=== PATIENT | female | born 1950 | race Two or more races ===

== ENCOUNTER 2021-12-01 07:16 | Observation (INO) ==
--- NOTE | 2021-11-02 10:23 | PAT Medication Instructions ---
Medication Instructions Date of Service November 02, 2021 Home Medications acetazolamide 250 mg tablet 250 mg PO UD aspirin 81 mg capsule 162 mg PO QAM cevimeline 30 mg capsule 1 cap PO TID cyanocobalamin (vitamin B-12) 1,000 mcg capsule 1,000 mcg PO QAM ferrous sulfate 325 mg (65 mg iron) tablet (iron) 325 mg PO Q2D gabapentin 100 mg capsule 300 mg PO HS hydrochlorothiazide 25 mg tablet 25 mg PO QAM inulin 2 gram chewable tablet (Fiber Gummies) 2 g PO HS lisinopril 2.5 mg tablet 2.5 mg PO QAM metformin 500 mg tablet 500 mg PO QPM multivitamin 1 tab PO QAM oxybutynin chloride 5 mg tablet 5 mg PO TID pantoprazole 20 mg tablet,delayed release 20 mg PO BID pilocarpine HCl 5 mg tablet 5 mg PO QID ropinirole 0.25 mg tablet 0.25 mg PO HS semaglutide (Ozempic) 0.25 mg SUBCUT WK Continue as directed semaglutide (Ozempic) 0.25 mg SUBCUT WK acetazolamide 250 mg tablet 250 mg PO UD DO NOT take the morning of surgery cyanocobalamin (vitamin B-12) 1,000 mcg capsule 1,000 mcg PO QAM ferrous sulfate 325 mg (65 mg iron) tablet (iron) 325 mg PO Q2D hydrochlorothiazide 25 mg tablet 25 mg PO QAM lisinopril 2.5 mg tablet 2.5 mg PO QAM multivitamin 1 tab PO QAM oxybutynin chloride 5 mg tablet 5 mg PO TID pilocarpine HCl 5 mg tablet 5 mg PO QID cevimeline 30 mg capsule 1 cap PO TID Take morning of surgery With a small sip of water, OTHERWISE NOTHING TO EAT OR DRINK AFTER MIDNIGHT: aspirin 81 mg capsule 162 mg PO QAM (unless surgeon directed otherwise) pantoprazole 20 mg tablet,delayed release 20 mg PO BID Take evening before surgery cevimeline 30 mg capsule 1 cap PO TID gabapentin 100 mg capsule 300 mg PO HS inulin 2 gram chewable tablet (Fiber Gummies) 2 g PO HS metformin 500 mg tablet 500 mg PO QPM oxybutynin chloride 5 mg tablet 5 mg PO TID pantoprazole 20 mg tablet,delayed release 20 mg PO BID pilocarpine HCl 5 mg tablet 5 mg PO QID ropinirole 0.25 mg tablet 0.25 mg PO HS Other Notes If you have any questions please call us at [phone] or [phone] or [phone] or [phone]
--- NOTE | 2021-11-05 09:16 | Anesthesiology Consultation ---
Date of Service November 05, 2021 Assessment & Plan (1) Encounter for pre-operative examination: - check BSG am DOS. - Pt's daughter to accompany her DOS due to chronic memory changes per pt and daughter, OR notified. - positive antibodies: Per Erick with blood bank, nothing additional needed from PAT or patient at this time. - PCP pre-op office visit 11/02/21 [facility]: "...Pt has revised cardiac index score of No Risk Factors- 0.4% (95% CI: 0.1-0.8) for the surgery scheduled...low risk for the listed procedure..." - neurology office visit 08/11/21 [facility]: "...congenital nystagmus and periodic atax ia with her Diamox dose being limited by the presence of renal calculi...episodes of brief duration ataxia and speech arrest lasting up to a half an hour...has had some falls...Continue Diamox...follow with nephrology...offered some balance therapy but she is not interested..." - COVID screening: Per assessment on 11/05/2021: Travel screen negative, no known COVID-19 positive contacts or current COVID-19 related symptoms in past 2 weeks. Patient vaccinated. Surgeon arranging preop COVID testing, scheduled 11/26/2021. Awaiting results. Chart Review Chart Review: Acceptable Risk for Surgery and Patient seen in Pre Admission Testing Teaching & Discussion Pre-Anesthesia Teaching/Discussion Notes: Instructed NPO after midnight before surgery, except medications with 15 cc of water. Medication instructions provided according to the PAT guidelines. History Surgery Operation Date: 12/01/21 07:15 Proposed Procedures p Left Total Knee Arthroplasty - Zaid Roberto MD Height/Weight Height: 5 ft 5 in Weight: 102.4 kg Allergies Allergy/AdvReac Type Severity Reaction Status Date / Time No Known Allergies Allergy Verified 11/02/21 08:00 Medications Home Medications Medication Instructions Recorded Confirmed Last Taken acetazolamide 250 mg tablet 250 mg PO UD 11/02/21 11/02/21 Unknown aspirin 81 mg capsule 162 mg PO QAM 11/02/21 11/02/21 Unknown cevimeline 30 mg capsule 1 cap PO TID 11/02/21 11/02/21 Unknown cyanocobalamin (vitamin B-12) 1,000 mcg PO QAM 11/02/21 11/02/21 Unknown 1,000 mcg capsule ferrous sulfate 325 mg (65 mg 325 mg PO Q2D 11/02/21 11/02/21 Unknown iron) tablet (iron) gabapentin 100 mg capsule 300 mg PO HS 11/02/21 11/02/21 Unknown hydrochlorothiazide 25 mg tablet 25 mg PO QAM 11/02/21 11/02/21 Unknown inulin 2 gram chewable tablet 2 g PO HS 11/02/21 11/02/21 Unknown (Fiber Gummies) lisinopril 2.5 mg tablet 2.5 mg PO QAM 11/02/21 11/02/21 Unknown metformin 500 mg tablet 500 mg PO QPM 11/02/21 11/02/21 Unknown multivitamin 1 tab PO QAM 11/02/21 11/02/21 Unknown oxybutynin chloride 5 mg tablet 5 mg PO TID 11/02/21 11/02/21 Unknown pantoprazole 20 mg tablet,delayed 20 mg PO BID 11/02/21 11/02/21 Unknown release pilocarpine HCl 5 mg tablet 5 mg PO QID 11/02/21 11/02/21 Unknown ropinirole 0.25 mg tablet 0.25 mg PO HS 11/02/21 11/02/21 Unknown semaglutide (Ozempic) 0.25 mg SUBCUT WK 11/02/21 11/02/21 Unknown Past Medical History Medical History (Updated 11/08/21 @ 08:23 by Shazia Harding PA-C) Anemia H&H pre-op 10/2021 Arthritis 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 neuro Dr. Chris Magana CKD (chronic kidney disease) stage 3, GFR 30-59 ml/min follows with [facility] nephrology Congenital nystagmus follows with [facility] neuro Cutaneous lupus erythematosus Diabetes mellitus, type 2 Heartburn History of kidney stones Hypertension controlled, stable per pt Protein in urine "REASON FOR DITROPAN PER PATIENT" Restless leg syndrome Sjogren's syndrome Sleep apnea CPAP- compliant Patient denies h/o stroke, seizures, heart attack, heart failure, blood clots or blood transfusions. Exercise / Class Metabolic Activity III < 4 Walking/Shop/Light housework (ambulates with cane/walker, denies CP or SOB) Past Family History Family History Mother Family history of diabetes mellitus Other No family history of adverse response to anesthesia Past Surgical History Surgical History History of arthroscopy LEFT KNEE History of cholecystectomy History of colonoscopy History of esophagogastroduodenoscopy (EGD) History of lithotripsy History of tooth extraction Past Anesthesia History No Hx of Anesthesia Complications and No Family Hx of Anesthesia Complications History of PONV No Hx of PONV and No Hx of Motion Sickness Social History Smoking Status: Never smoker Do You Dip or Chew Tobacco: No Hx Alcohol Use: No substance use type: does not use Review of Systems Patient denies chest pain, shortness of breath, dyspnea on exertion, fever, chills, cough, wheezing, or palpitations. Physical Exam Vital Signs Vitals BP 113/72 P 72 TEMP 98.5 SP02 97% on RA RESP 17 Physical Full cervical extension range of motion without pain TMD 3.5 finger breaths Mallampati Score 2 Dentition: intact, partial upper front two, several missing right upper side; d enies chipped or loose teeth or implants Lungs: normal respiratory effort. Clear throughout to auscultation, no adventitious breath sounds Cardiac: regular rate and rhythm, no murmurs noted Carotid arteries: negative bruit bilat Lab Results Anesthesia Preop Results Results Anesthesia Widget: WBC 4.82 K/uL (4.8-10.8) 11/05/21 Hgb 12.5 g/dL (12.0-16.0) 11/05/21 Hct 38.8 % (37-47) 11/05/21 Plt 171 K/uL (130-400) 11/05/21 Na 140 mmol/L (136-145) 11/05/21 K 3.5 mmol/L (3.5-5.1) 11/05/21 Cl 107 mmol/L (98-107) 11/05/21 CO2 26 mmol/L (21-32) 11/05/21 BUN 24 mg/dl (6-23) H 11/05/21 Creat 1.14 mg/dl (0.6-1.2) 11/05/21 Glucose Level 92 mg/dl (70-99(Fasting)) 11/05/21 PT 10.9 Seconds (9.0-12.0) 11/05/21 PTT 27.5 Seconds (21.0-31.0) 11/05/21 INR 1.0 (0.9-1.1) 11/05/21 HA1c 6.1 % (4.5-5.6) H 11/05/21 Urine Color Yellow 11/05/21 Urine Appearance Clear (Clear) 11/05/21 Urine pH 7.0 (4.5-7.5) 11/05/21 Urine Specific [place] 1.013 (1.000-1.030) 11/05/21 Urine Protein Negative (Negative) 11/05/21 Urine Glucose (UA) Negative (Negative) 11/05/21 Urine Ketones Negative (Negative) 11/05/21 Urine Blood Negative (Negative) 11/05/21 Urine Nitrite Negative (Negative) 11/05/21 Urine Bilirubin Negative (Negative) 11/05/21 Urine Urobilinogen Negative (Negative) 11/05/21 Urine Leukocyte Esterase Trace (Negative) H 11/05/21 Urine WBC (Auto) 1-5 /hpf (0-5) 11/05/21 Urine RBC (Auto) 0-4 /hpf (0-4) 11/05/21 Urine Hyaline Casts (Auto) 0 /lpf (0-5) 11/05/21 Urine Epithelial Cells (Auto) >30 /lpf (0-5) H 11/05/21 Urine Bacteria (Auto) Negative (Negative) 11/05/21 Blood Type A Positive 11/05/21 Antibody Screen POSITIVE A 11/05/21 Testing Electrocardiogram Date: 11/05/21 NSR, rate 69 bpm Left axis deviation Chest X-Ray Date: 11/05/21 No pneumothorax. No pleural effusions. The heart is mildly enlarged. Prior cholecystectomy. There is mild diffuse interstitial thickening. This may be chronic. Otherwise, no focal lung consolidations to suggest pneumonia. No evidence for pulmonary edema. IMPRESSION: 1. Mild cardiomegaly. 2. Mild diffuse interstitial thickening. This is likely chronic. Stress Test Date: 02/20/18 Dobutamine Normal without resting LV wall motion abnormalities or inducible ischemia MPHR 95% EF 68%
--- NOTE | 2021-11-30 19:34 | History & Physical Report ---
Date of Service November 30, 2021 Assessment & Plan (1) Primary osteoarthritis of left knee: Plan: Patient with endstage osteoarthritis left knee. She has failed conservative measures and would like to proceed with knee replacement. Risks, benefits and alternatives to surgery including but not limited to infection, DVT, pain, stiffness, need for revision surgery, damage to blood vessels, damage to nerves, PE, , were discussed with the patient and they wish to proceed. Plan on left total knee arthroplasty at [facility] on 12/01/[address] Roberto. Will plan on aspirin 81mg twice daily for 1 mo post op for DVT prophylaxis. Will plan on outpatient PT. All questions answered. She will follow up post op. History of Present Illness Chief Complaint: Left knee pain Primary Care Provider: NO PCP 70yo female with PMHx significant for SANDRINE, DM2, HTN, CKD who presents with ongoing left knee pain. She has failed conservative measures including viscoelastic and cortisone injecitons, as well as anti-inflammatories. Pain is interfering with her daily activities. She would like to proceed with surgical intervention. Patient denies headaches, sweats, fevers, chills, double vision, blurred vision, cough, sore throat, dysphagia, chest pain, sob, wheezing, n/v/d/c, numbness, tingling, fatigue, urinary symptoms, mood disorders. ROS positive for left knee pain and stiffness. Allergies Allergy/AdvReac Type Severity Reaction Status Date / Time No Known Allergies Allergy Verified 11/02/21 08:00 Home Medications Medication Instructions Recorded Confirmed Type acetazolamide 250 mg tablet 250 mg PO UD 11/02/21 11/02/21 History aspirin 81 mg capsule 162 mg PO QAM 11/02/21 11/02/21 History cevimeline 30 mg capsule 1 cap PO TID 11/02/21 11/02/21 History cyanocobalamin (vitamin B-12) 1,000 mcg PO QAM 11/02/21 11/02/21 History 1,000 mcg capsule ferrous sulfate 325 mg (65 mg 325 mg PO Q2D 11/02/21 11/02/21 History iron) tablet (iron) gabapentin 100 mg capsule 300 mg PO HS 11/02/21 11/02/21 History hydrochlorothiazide 25 mg tablet 25 mg PO QAM 11/02/21 11/02/21 History inulin 2 gram chewable tablet 2 g PO HS 11/02/21 11/02/21 History (Fiber Gummies) lisinopril 2.5 mg tablet 2.5 mg PO QAM 11/02/21 11/02/21 History metformin 500 mg tablet 500 mg PO QPM 11/02/21 11/02/21 History multivitamin 1 tab PO QAM 11/02/21 11/02/21 History oxybutynin chloride 5 mg tablet 5 mg PO TID 11/02/21 11/02/21 History pantoprazole 20 mg tablet,delayed 20 mg PO BID 11/02/21 11/02/21 History release pilocarpine HCl 5 mg tablet 5 mg PO QID 11/02/21 11/02/21 History ropinirole 0.25 mg tablet 0.25 mg PO HS 11/02/21 11/02/21 History semaglutide (Ozempic) 0.25 mg SUBCUT WK 11/02/21 11/02/21 History Past Med/Surg History Medical History (Updated 11/30/21 @ 19:33 by Ritesh Heller PA-C) Anemia H&H pre-op 10/2021 Arthritis 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 Chris Magana CKD (chronic kidney disease) stage 3, GFR 30-59 ml/min follows with [facility] nephrology Congenital nystagmus follows with [facility] neuro Cutaneous lupus erythematosus Diabetes mellitus, type 2 Heartburn History of kidney stones Hypertension controlled, stable per pt Protein in urine "REASON FOR DITROPAN PER PATIENT" Restless leg syndrome Sjogren's syndrome Sleep apnea CPAP- compliant Surgical History History of arthroscopy LEFT KNEE History of cholecystectomy History of colonoscopy History of esophagogastroduodenoscopy (EGD) History of lithotripsy History of tooth extraction Family History Mother Family history of diabetes mellitus Other No family history of adverse response to anesthesia Social History Smoking Status: Never smoker Second Hand Exposure: No; Hx Alcohol Use: No Preferred Language: Danish Warehouse Operator Required: No Beliefs That Will Affect Care: None Current Living Situation: Spouse Feels Safe at Home: Yes Assistive Devices: Cane, CPAP, Glasses and Walker Review of Systems All systems reviewed & are unremarkable except as noted in HPI & below Physical Exam Constitutional: well developed and well nourished; no acute distress Eyes: PERRL, conjunctivae normal, anicteric sclerae ENMT: external ear and nose normal, oropharynx normal Neck: trachea midline, no thyromegaly Respiratory: normal respiratory effort, lungs clear to auscultation Cardiovascular: RRR, no murmur, no edema Musculoskeletal: Left knee: Varus alignment. Mild effusion. Tenderness medial joint line. ROM 15-100 degrees. Stable to valgus and varus stress. Skin: no rashes, warm and dry Neurologic: patellar DTR's 2+ bilat, sensation intact Psychiatric: A+Ox3, euthymic affect Results & Data ([facility]) Diagnostic Findings Left knee: Severe endstage osteoarthritis with varus alignment, bone on bone medial compartment.
[~2021-12-01 07:16] MED LIST: ACETAMINOPHEN 500 MG TAB PO SCH; BUPIVACAINE 0.25% 30 ML VIAL ONE; BUPIVACAINE 0.5 % 5 MG/1 ML PF 10ML VIAL ONE; CeleBREX 200 MG CAP PO SCH; DEXAMETHASONE SOD INJ 4 MG/ML VIAL ONE; EPINEPHrine INJ 1 MG/ML AMP ONE; FAMOTIDINE 20 MG TAB PO SCH; GABAPENTIN 300 MG CAP PO SCH; LR 500ML BOLUS, THEN 15ML/HR IV SCH; METOCLOPRAMIDE HCL 10 MG TABLET PO SCH; TRANEXAMIC ACID 1,000 MG **IV Intra-op IV SCH; TRANEXAMIC ACID 1,000 MG **IV Pre-op IV SCH; ceFAZolin 2000MG 2,000 MG/15 ML SYR IV SCH
[2021-12-01] MEDS ORDERED: LIDOCAINE 2% 2 ML VIAL/AMP(20MG/ML) INFIL ONE (08:18)
[2021-12-01] MEDS ORDERED: ePHEDrine sulfate 50 MG/ML SYR ONE (08:18)
[2021-12-01] MEDS ORDERED: PROPOFOL IV EMULSION 10 MG/ML 20 ML VIAL IV ONE ×3 (08:18→12:24)
[2021-12-01] MEDS ORDERED: MIDAZOLAM HCL 1 MG/ML 2ML VIAL ONE (08:19)
[2021-12-01] MEDS ORDERED: fentaNYL citrate 100 MCG/2 ML VIAL ONE (08:19)
--- NOTE | 2021-12-01 09:50 | History & Physical Bridge Note ---
Date of Service December 01, 2021 History & Physical Bridge Note I have examined the patient, reviewed the History & Physical and in the interval since the performance of the History & Physical I have noted the following changes of clinical significance: no changes noted
[2021-12-01] MEDS ORDERED: ONDANSETRON INJ 2 MG/ML 2 ML VIAL IV PRN ×2 (09:58→14:13)
[2021-12-01] MEDS ORDERED: ATROPINE SULFATE 0.1 MG/ML 10ML SYR IV PRN (09:58)
[2021-12-01] MEDS ORDERED: fentaNYL citrate 100 MCG/2 ML VIAL IV PRN (09:58)
[2021-12-01] MEDS ORDERED: ePHEDrine sulfate 50 MG/ML AMP IV PRN (09:58)
[2021-12-01] MEDS ORDERED: ROPIVACAINE 0.5% HCL/PF 150 MG, BUPIVACAINE 0.75% MPF 20 ML, EPINEPHrine 0.15 MG, dexAM... INFIL SCH (11:00)
[2021-12-01] MEDS ORDERED: ePHEDrine sulfate 50 MG/ML AMP ONE (11:45)
--- NOTE | 2021-12-01 13:23 | Post Operative Brief Note ---
Immediate Post Op Note v1 Date of Surgery December 01, 2021 Pre & Post Diagnosis Operation Date: 12/01/21 09:35 Pre-Op Diagnosis: Left Knee Osteoarthritis Post-Op Diagnosis: Left Knee Osteoarthritis I identified the patient and participated in the time-out.: Yes Procedure Operation Date: 12/01/21 09:35 Actual Procedures p Left Total Knee Arthroplasty(Left), lateral release, superficial wound VAC application- Zaid Roberto MD Surgeon Zaid Roberto MD Typing Bookkeeper Herman SMITH Estimated Blood Loss 10 Findings Consistent with Post-Op Diagnosis Specimens Bone cuts Drains Hemovac Drain (10Fr Round) Anesthesia Type MAC Spinal Regional Complications none Disposition Accompanied Patient To Recovery: No Disposition: Recovery Room Overlapping Procedure I was immediately available: during the entire case.
--- NOTE | 2021-12-01 13:33 | Operative Report ---
Post Operative Report Pre & Post Diagnosis Operation Date: 12/01/21 09:35 Pre-Op Diagnosis: Left Knee Osteoarthritis Post-Op Diagnosis: Left Knee Osteoarthritis I identified the patient and participated in the time-out.: Yes Procedure Operation Date: 12/01/21 09:35 Actual Procedures p Left Total Knee Arthroplasty(Left), lateral release, application superficial wound VAC Zaid Roberto MD Surgeon Zaid Roberto MD Instructional Consultant Herman SMITH Estimated Blood Loss 10 Findings Consistent with Post-Op Diagnosis Specimens Bone cuts Drains 2 Hemovac Anesthesia Type MAC Spinal Regional Complications none Disposition Disposition: Recovery Room Indications 70-year-old female with severe progressive osteoarthritis left knee failed conservative management. Patient has advanced tricompartmental osteoarthritis [id number] medial compartment and patellofemoral joint with lateral Patella. Description of Procedure Patient taken to the operating room the size under spinal MAC regional block anesthesia. Patient was placed supine on the operating table. A pneumatic tourniquet was placed about the moderately obese left upper thigh. The left lower extremity was prepped and draped in sterile fashion. Knee exam demonstrated moderate obesity with limited range of motion with range of motion of 20degrees through 90 degrees with flexion contracture and [id number] crepitation. No pseudolaxity. The leg was elevated exsanguinated with an Esmarch bandage and pneumatic tourniquet was raised to 350 millimeters of mercury. Skin incised sharply in longitudinal fashion. Subcutaneous flaps elevated. Incision was made through the medial retinaculum extending up in the mid third of the quadriceps tendon and down to the medial tibial tubercle. Intra-articular findings demonstrated severe tricompartmental osteoarthritis [id number] medial compartment with eburnated bone very large osteophytes throughout the knee all compartments with a lateral line patella [id number] and patellofemoral joint with very large patellar osteophytes. The LiveStubn total knee arthroplasty system was used. To expose the knee the infr apatellar fat pad was resected. The meniscal remnants and cruciate ligaments were resected. The anterior fat pad over the femur in the area of the anterior flange of the femoral component was resected. Lateral synovial bands release. The femur was exposed. I had to remove some the large osteophytes in order to get femoral exposure. An intramedullary drill hole was made into the canal. A guide ronak was placed. Distal femoral cutting guide was adjusted to resect a 5 degree valgus cut with 10 millimeters distal femur resected. Some of the large patellar osteophytes had to be resected in order to chanelle the patella. With the knee extended, a subperiosteal peel lateral release was performed around the patella. Patella width was measured and width was reproduced using a freehand cut technique and a 33 x 9 symmetrical patella component. The 3 drill holes were made and the excess lateral facet was beveled off to prevent any impingement. Attention was taken back to the femur which was exposed with retractors and the femoral sizing guide was pinned in position. The drill holes were placed in 3 of external rotation to match epicondylar axis. Femur sized for a 5 component. The 4-in-1 cutting block was placed and then the anterior posterior and chamfer cuts are made. The tibia was then subluxed. The external tibial cutting guide was just to make a perpendicular cut to the long axis of the tibia below the most deficient bone loss side. A lamina account manager was used and the flexion extension gaps were balanced. This required medial posterior medial release. All posterior osteophytes removed. All meniscal remnants were resected. The tibia exposed and the trial tibial component size 4 was externally rotated in line with the tibial tubercle and pinned in position. The punch for stem was used. The notch cutting device was centered appropriately and the femoral notch cut was made. The femoral trial was inserted. Trial tibial inserts were placed and size 11 gave balanced ligaments through flexion and extension. Patella tracking was assessed. The patella tracked with some slight liftoff so I did a lateral release preserving the synovium and this corrected patella tracking to central. The trial components were then removed and the orthomix anesthetic cocktail was injected per protocol. The knee was then copiously irrigated with pulsatile lavage saline solution. Final components were then cemented with Simplex cement. Final components were triathlon size 5 left posterior stabilized femur, the 4 primary tibial baseplate, the 11 mm tibial polyethylene bearing insert and the 33 x 9 symmetrical polyethylene patella. After the cement cured the Betadine soak was used for 3 minutes. Further pulsatile lavage irrigation was then performed and 2 Hemovac drains were brought out laterally. The quadriceps tendon and medial retinaculum were closed with figure of 8 #1 Vicryl sutures. The knee was taken through full range of motion and the repair was secure. Knee range of motion was 0 through 125 degrees. The subcutaneous tissues were closed with 2-0 Vicryl sutures. Skin was closed with jannie. James and Acticoat superficial wound VAC was applied. The patient tolerated the procedure well. Herman SMITH was my physician anesthesiology physician assistant who participated as esol teacher assistant and was involved in all aspects of the procedure including patient positioning prepping and draping,leg positioning ,soft tissue retraction and instrument management and participated in the closing and will participate in postoperative care of the patient. The patient tolerated the procedure well. I attest to the content of the Intraoperative Record and any orders documented therein. Any exceptions are noted below.
--- NOTE | 2021-12-01 13:43 | XRay Report ---
TWO VIEWS LEFT KNEE CLINICAL HISTORY: Postoperative examination. FINDINGS: AP and crosstable lateral portable views of the left knee are obtained. A left knee arthrop lasty is in near anatomic alignment. There has been undersurface remodeling of the patella. No acute fracture is seen. There are expected postoperative changes around the knee including skin clips, a kim rgical drain, soft tissue edema, and subcutaneous gas. IMPRESSION: Expected postoperative changes status post left knee arthroplasty. No acute fracture is s een. ACT 112: Negative or not required by law. Electronically signed by: Sage Chairez M.D. 12/01/2021 1:42 PM
[2021-12-01] MEDS ORDERED: NON-FORMULARY MEDICATION (Ferrous Sulfate [Iron] 325 mg (65 mg iron) Tablet) PO SCH (14:13)
[2021-12-01] MEDS ORDERED: HYDROmorphone INJ 0.5 MG/0.5 ML SYR IV PRN (14:13)
[2021-12-01] MEDS ORDERED: NALOXONE HCL 0.4 MG/1 ML VIAL/CARP IV PRN (14:13)
[2021-12-01] MEDS ORDERED: MAGNESIUM HYDROXIDE SUSP 30 ML UDC PO PRN (14:13)
[2021-12-01] MEDS ORDERED: OXYBUTYNIN CHLORIDE 5 MG TAB PO SCH (14:13)
[2021-12-01] MEDS ORDERED: METOCLOPRAMIDE HCL INJ 5 MG/ML 2 ML VIAL IV PRN (14:13)
[2021-12-01] MEDS ORDERED: bisacodyL 10 MG SUPP PR PRN (14:13)
[2021-12-01] MEDS ORDERED: PHARMACY GLYCEMIC MGMT CONSULT PRN (14:13)
[2021-12-01] MEDS ORDERED: NON-FORMULARY MEDICATION (Semaglutide [Ozempic] 0.25 mg or 0.5 mg(2 mg/1.5 mL) Pen Injecto SQ SCH (14:13)
--- NOTE | 2021-12-01 14:31 | Anesthesiology Progress Note ---
Date of Service December 01, 2021 Anesthesia Post Procedure Vital Signs Vital Signs: Temp Pulse Pulse Resp BP Pulse Ox 12/01/21 14:15 45 L 16 90/51 L 97 12/01/21 14:00 36.2 C L 50 L 15 101/59 L 98 12/01/21 13:50 50 L 10 L 98/54 L 98 12/01/21 13:40 55 L 17 93/51 L 93 12/01/21 13:30 53 L 13 97/54 L 100 12/01/21 13:20 56 L 14 105/60 100 12/01/21 13:10 36.2 C L 67 18 96/61 L 95 12/01/21 07:48 36.9 C 70 20 124/73 97 Transfer of Care Handoff Completed per policy Notes Mental Status: alert / awake / arousable Patient Amnestic to Procedure: Yes Nausea / Vomiting: adequately controlled Pain: adequately controlled Airway Patency, RR, SpO2: stable & adequate BP & HR: stable & adequate Hydration State: stable & adequate Anesthetic Complications: no major complications apparent
[2021-12-01] MEDS: ACETAMINOPHEN 500 MG TAB PO SCH ×2 (14:35→21:58)
[2021-12-01] MEDS: SODIUM CHLORIDE 0.9% 1000ML 1,000 ML IV SCH (14:45)
--- NOTE | 2021-12-01 15:19 | Pharmacy Report ---
Pharmacy Glycemic Short Note 2 - Date of Service December 01, 2021 - Glycemic Short BSG Results (Last 24 hours): 12/01/21 12/01/21 12/01/21 08:04 13:11 15:02 POC Glucose 109 H 122 H 137 H OUTPATIENT ANTIDIABETIC REGIMEN: * Ozempic 0.25 mg weekly * Metformin ER 500 mg daily ASSESSMENT: * 70 y/o F admitted for Left TKA today. Patient with history of diabetes managed at home on oral Metformin and Ozempic. These will be held on admission and will utilize basal and bolus insulin for glycemic control. * Patient's BSGs so far on admission are well controlled. She received a dose of IV Dex 4mg in the OR today. Expect BSG to trend up by dinner. * Since BSGs have been within goal so far, a basal insulin dose is not ordered. * Novolog ordered with meals based on stress between 2 and 3. PLAN FOR INPATIENT GLYCEMIC CONTROL: * Hold outpatient oral diabetes medications * Basal insulin * not ordered today * Bolus insulin * NovoLog per scale ACHS or Q6hrs while NPO * Goal Range: Low 110 mg/dL - High 140 mg/dL * Correction Factor: 20 mg/dL/unit * Nutritional / Prandial insulin per carb ratio of 1 unit per 7 grams CHO consumed
[2021-12-01] MEDS ORDERED: INSULIN ASPART PER UNIT ONE (15:41)
[2021-12-01] MEDS: INSULIN ASPART 100 UNITS/ML 3 ML PEN SC SCH ×2 (15:42→21:19)
[2021-12-01] MEDS ORDERED: INSULIN ASPART 100 UNITS/ML 3 ML PEN SC ONE (17:45)
[2021-12-01] MEDS ORDERED: FERROUS SULFATE 325 MG TAB PO SCH (18:00)
[2021-12-01] MEDS: ceFAZolin 2000MG 2,000 MG/15 ML SYR IV SCH (18:18)
--- NOTE | 2021-12-01 20:23 | Consultation ---
Date of Consultation December 01, 2021 Assessment & Plan (1) S/P total knee arthroplasty: Post op day# 0 S/P Left TKA by Dr Roberto EBL#10ml -pain management per ortho -wound management per ortho -PT/OT as appropriate -DVT prophylaxis per ortho -incentive spirometry -monitor H&H for acute blood loss anemia; pre-op Hgb: 12.5 (2) Diabetes mellitus, type 2: -A1c: 6.1 on 08/06/21 -Hold home metformin, Ozempic -Basal bolus insulin, glycemic pharmacist on board, appreciate management (3) Hypertension: -Continue lisinopril -Hold HCTZ and reassess tomorrow (4) Sjogren's syndrome: -Continue cevimeline (5) Cutaneous lupus erythematosus: -Uses topical steroids as needed. No current rashes. Follows with dermatology (6) CKD (chronic kidney disease) stage 3, GFR 30-59 ml/min: Baseline Cr: 1.1-1.3 (7) Ataxia: Follows with neurology -Continue diamox (8) Sleep apnea: -CPAP HS DVT Prophylaxis -SCDs per orhto Disposition per primary service Follows with Dr Dr Stafford in [place] for routine care Pt was seen and care coordinated with Dr New. See addendum Thank you for this consultation. We will follow the patient with you during their hospital stay. You can reach a member of the [facility]01 via [facility] Supervising Physician Co-Signing Physician Notes Patient seen and examined independently at bedside. Chart reviewed. Case discussed with Blanca MORTON and agree with the documentation above. In summary, this is a 70 year old female with left knee OA who underwent Left Total Knee Arthroplasty(Left), lateral release, application superficial wound VAC today by orthopedics. Doing well postop. Resting comfortably in bed, pain controlled. Tolerated diet without issues. Voiding without issues. Left knee covered with dressing and ice pack, hemovac suction in place. Chest clear, heart sounds normal, AAOx3. Diet, activities, pain management and DVT prophylaxis per ortho. Insulin per glycemic pharmacist for DM. Continue lisinopril with hold parameters, hold HCTZ for now. Rest as per note above. History of Present Illness Requesting Physician: Dr Roberto Reason for Consultation: Post op medical management Attending Physician: Zaid Roberto MD History of Present Illness Patient is 70 y/o F with PMH DM II, HTN, CKD III, cutaneous lupus erythematosus, Sjogren's syndrome, ataxia, SANDRINE seen in medical consultation s/p left TKA today by Dr. Roberto. Postop patient reports doing well. Reports pain is controlled. Denies nausea, vomiting, headache, shortness of breath, chest pain. Reports last BM 2-3 days ago. Denies fever/chills, diaphoresis, dizziness, vision changes, neck pain, palpitations, cough, sore throat, choking, rhinorrhea, abdominal pain, paresthesias, weakness, extremity edema, rashes, urinary symptoms. Allergies Allergy/AdvReac Type Severity Reaction Status Date / Time No Known Allergies Allergy Verified 12/01/21 07:37 Home Medications Medication Instructions Recorded Confirmed Type acetazolamide 250 mg tablet 250 mg PO UD 11/02/21 12/01/21 History aspirin 81 mg capsule 162 mg PO QA 11/02/21 12/01/21 History cevimeline 30 mg capsule 1 cap PO TID 11/02/21 12/01/21 History cyanocobalamin (vitamin B-12) 1,000 mcg PO QAM 11/02/21 12/01/21 History 1,000 mcg capsule ferrous sulfate 325 mg (65 mg 325 mg PO Q2D 11/02/21 12/01/21 History iron) tablet (iron) gabapentin 100 mg capsule 300 mg PO HS 11/02/21 12/01/21 History hydrochlorothiazide 25 mg tablet 25 mg PO QA 11/02/21 12/01/21 History inulin 2 gram chewable tablet 2 g PO 11/02/21 12/01/21 History (Fiber Gummies) lisinopril 2.5 mg tablet 2.5 mg PO QAM 11/02/21 12/01/21 History metformin 500 mg tablet 500 mg PO QPM 11/02/21 12/01/21 History multivitamin 1 tab PO QAM 11/02/21 12/01/21 History oxybutynin chloride 5 mg tablet 5 mg PO TID 11/02/21 12/01/21 History pantoprazole 20 mg tablet,delayed 20 mg PO BID 11/02/21 12/01/21 History release pilocarpine HCl 5 mg tablet 5 mg PO QID 11/02/21 12/01/21 History ropinirole 0.25 mg tablet 0.25 mg PO HS 11/02/21 12/01/21 History semaglutide (Ozempic) 0.25 mg SUBCUT WK 11/02/21 12/01/21 History Patient History Medical History Anemia H&H pre-op 10/2021 Arthritis 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 neuro Dr. Chris Magana CKD (chronic kidney disease) stage 3, GFR 30-59 ml/min follows with [facility] nephrology Congenital nystagmus follows with [facility] neuro Cutaneous lupus erythematosus Diabetes mellitus, type 2 Heartburn History of kidney stones Hypertension controlled, stable per pt Protein in urine "REASON FOR DITROPAN PER PATIENT" Restless leg syndrome Sjogren's syndrome Sleep apnea CPAP- compliant Surgical History History of arthroscopy LEFT KNEE History of cholecystectomy History of colonoscopy History of esophagogastroduodenoscopy (EGD) History of lithotripsy History of tooth extraction Family History Mother Family history of diabetes mellitus Other No family history of adverse response to anesthesia Social History Smoking Status: Never smoker Second Hand Exposure: No; Do You Dip or Chew Tobacco: No; Hx Alcohol Use: No Preferred Language: [employer] Required: No Beliefs That Will Affect Care: None Current Living Situation: Spouse Feels Safe at Home: Yes Safety Concerns: Feels Safe At This Time Assistive Devices: Cane, CPAP, Glasses and Walker Assistive Devices Comment: PARTIAL UPPER PLATE Review of Systems Review of Systems: All systems reviewed & are unremarkable except as noted in HPI & below Physical Exam Physical Exam: General: no distress, obese Head: normocephalic, atraumatic Eyes: conjunctiva non-injected, anicteric ENT: normal inspection external ears, nose, mucous membranes moist Neck: supple, trachea midline Lungs: clear, no respiratory distress, no wheezing/rhonchi/rales CV: RRR, no murmur, no pretibial edema Abd: protuberant, normal BS, soft, non-tender Ext: no calf tenderness, LLE: +NIALL wrap and surgical dressing in place is dry and intact, +hemovac in place Neuro: A&O x 3, no focal deficits noted, normal affect Skin: warm, dry Results & Data ([facility]) Vital Signs (Past 12 Hours) Vital Signs Temp Pulse Pulse Resp BP Pulse Ox 12/01/21 20:14 36.7 C 53 L 18 105/65 96 12/01/21 17:45 36.5 C 63 16 112/69 97 12/01/21 16:30 72 12 107/52 L 96 12/01/21 16:00 51 L 11 L 100/55 L 93 12/01/21 15:30 63 16 105/67 93 12/01/21 15:00 57 L 11 L 103/67 98 12/01/21 14:45 36.2 C L 45 L 17 100/56 L 99 12/01/21 14:30 47 L 14 95/53 L 96 12/01/21 14:15 45 L 16 90/51 L 97 12/01/21 14:00 36.2 C L 50 L 15 101/59 L 98 12/01/21 13:50 50 L 10 L 98/54 L 98 12/01/21 13:40 55 L 17 93/51 L 93 12/01/21 13:30 53 L 13 97/54 L 100 12/01/21 13:20 56 L 14 105/60 100 12/01/21 13:10 36.2 C L 67 18 96/61 L 95
[2021-12-01] MEDS: DOCUSATE SODIUM 100 MG CAP PO SCH (20:36)
[2021-12-01] MEDS: SENNA 8.6 MG TAB PO SCH (20:36)
[2021-12-01] MEDS: rOPINIRole HCL 0.25 MG TABLET PO SCH (20:36)
[2021-12-01] MEDS: PILOCARPINE HCL 5 MG TABLET PO SCH (20:36)
[2021-12-01] MEDS: OXYBUTYNIN CHLORIDE 5 MG TAB PO SCH (20:37)
[2021-12-01] MEDS: ASPIRIN 81 MG ECTAB PO SCH (20:37)
[2021-12-01] MEDS: PANTOprazole 40 MG TAB PO SCH (20:37)
[2021-12-01] MEDS: GABAPENTIN 300 MG CAP PO SCH (20:37)
[2021-12-01] MEDS ORDERED: acetaZOLAMIDE 250 MG TAB PO SCH (21:00)
[2021-12-02] MEDS: SODIUM CHLORIDE 0.9% 1000ML 1,000 ML IV SCH (00:54)
[2021-12-02] MEDS: ceFAZolin 2000MG 2,000 MG/15 ML SYR IV SCH (02:03)
[2021-12-02] MEDS ORDERED: LACTATED RINGER'S 1,000 ML IV ONE (04:41)
--- NOTE | 2021-12-02 04:44 | Communication Note ---
Date of Service: December 02, 2021 SBP 90s as per RN. AP Postop hypotension IVF Hold BP meds and home diuretics for now. Will relay to AM provider.
[2021-12-02] MEDS: ACETAMINOPHEN 500 MG TAB PO SCH ×3 (04:54→21:23)
[2021-12-02 07:09] LABS: Hematocrit (blood only) 33.2 % (37-47); Hemoglobin 10.9 g/dL (12.0-16.0); Mean Corpuscular Hemoglobin 30.2 pg (25-34); Mean Corpuscular Hgb Conc 32.8 g/dL (32-36); Mean Platelet Volume 10.1 fL (7.4-10.4); Platelet Count 185 K/uL (130-400); RDW Coefficient of Variation 13.6 % (11.5-14.5); RDW Standard Deviation 45.8 fL (36.4-46.3); Red Blood Count 3.61 M/uL (4.2-5.4); White Blood Count 12.28 K/uL (4.8-10.8)
[2021-12-02 07:26] LABS: BUN Creatinine Ratio 18.2 (10-20); Calcium 8.7 mg/dl (8.5-10.1); Creatinine Clr Calc Pharmacy 45.7 ml/min; Est GFR (African American) 45.5 ml/min; Est GFR (Non-African American) 39.3 ml/min; Magnesium 1.8 mg/dl (1.7-2.4); Potassium 3.7 mmol/L (3.5-5.1)
[2021-12-02 07:34] LABS: Basophils # (auto) 0.01 K/uL (0-0.2); Basophils % (auto) 0.1 %; Immature Granulocytes # (auto) 0.03 K/uL (0.00-0.02); Immature Granulocytes % (auto) 0.2 %; Lymphocytes # (auto) 1.45 K/uL (1.2-3.4); Lymphocytes % (auto) 11.8 %; Monocytes # (auto) 0.66 K/uL (0.11-0.59); Monocytes % (auto) 5.4 %; Neutrophils # (auto) 10.13 K/uL (1.4-6.5); Neutrophils % (auto) 82.5 %; RBC Morphology Unremarkable
--- NOTE | 2021-12-02 07:36 | Orthopedic Progress Note ---
Date of Service December 02, 2021 Assessment & Plan (1) S/P total knee arthroplasty: Plan: Postop day #1 left total knee arthroplasty -PT/OT -Pain management as written -DVT prophylaxis: Aspirin 81 mg twice daily, SCDs, teds -AM labs: Hemoglobin at 10.9 this morning from 12.5 preop. Mild leukocytosis likely due to perioperative stress and steroids. Creatinine is mildly increased from baseline to 1.37 this morning. She does have CKD stage III. -Discharge planning: Plan on discharge home with outpatient therapy. We will monitor her blood pressure today, monitor kidney function. IV fluids per medicine. Likely discharge home tomorrow as long as vitals and labs s table/improving. Admission and Anticipated Discharge Date Admission Date: December 01, 2021 Subjective Patient is postop day 1 left total knee. She feels well overall. Minimal pain. She denies chest pain, shortness of breath, dizziness, lightheadedness, nausea/vomiting/diarrhea. Her blood pressures have been running low this morning with systolic in the 90s. IV fluids have been restarted per medicine. Review of Systems 2 Review of Systems: All systems reviewed & are unremarkable except as noted in Subjective Physical Exam Physical Exam: Left knee: Dressing is clean, dry, intact. No calf tenderness. Toes are mobile with good dorsiflexion. Able to do straight leg raise. Distally neurovascular status and sensation intact. James wound VAC functioning, Hemovac on suction. Constitutional: WD/WN, vitals as above Results & Data ([facility]) Vital Signs (Past 12 Hours) Vital Signs Temp Pulse Resp BP Pulse Ox 12/02/21 04:09 36.6 C 59 L 18 91/53 L 96 12/01/21 23:14 36.6 C 57 L 18 92/60 L 96 12/01/21 20:14 36.7 C 53 L 18 105/65 96 Laboratory Results Lab Results 12/01/21 12/01/21 12/01/21 Range/Units 07:50 08:04 08:56 WBC (4.8-10.8) K/uL RBC (4.2-5.4) M/uL Hgb (12.0-16.0) g/dL Hct (37-47) % MCV (80-100) fL MCH (25-34) pg MCHC (32-36) g/dL RDW Std Deviation (36.4-46.3) fL RDW Coeff of Chely (11.5-14.5) % Plt Count (130-400) K/uL MPV (7.4-10.4) fL Immature Gran % (Auto) % Neut % (Auto) % Lymph % (Auto) % [place] % (Auto) % Eos % (Auto) % Baso % (Auto) % Neut # (Auto) (1.4-6.5) K/uL Lymph # (Auto) (1.2-3.4) K/uL [place] # (Auto) (0.11-0.59) K/uL Eos # (Auto) (0-0.5) K/uL Baso # (Auto) (0-0.2) K/uL Immature Gran # (Auto) (0.00-0.02) K/uL RBC Morphology Sodium (136-145) mmol/L Potassium (3.5-5.1) mmol/L Chloride (98-107) mmol/L Carbon Dioxide (21-32) mmol/L Anion Gap (3-11) BUN (6-23) mg/dl Creatinine (0.6-1.2) mg/dl Est Cr Clr Drug Dosing ml/min Est GFR ( Amer) ml/min Est GFR (Non-Af Amer) ml/min BUN/Creatinine Ratio (10-20) Glucose (70-99(Fasting)) mg/dl POC Glucose 109 H (70-99) mg/dl Lactate (0.4-2.0) mmol/L Calcium (8.5-10.1) mg/dl Magnesium (1.7-2.4) mg/dl SARS-CoV-2, RNA, NAAT NEGATIVE (NEGATIVE) Blood Type A Positive Antibody Screen POSITIVE A Antibody Identification Anti-c Antibody ID Comment Crossmatch See Detail 12/01/21 12/01/21 12/01/21 Range/Units 13:11 15:02 16:56 WBC (4.8-10.8) K/uL RBC (4.2-5.4) M/uL Hgb (12.0-16.0) g/dL Hct (37-47) % MCV (80-100) fL MCH (25-34) pg MCHC (32-36) g/dL RDW Std Deviation (36.4-46.3) fL RDW Coeff of Chely (11.5-14.5) % Plt Count (130-400) K/uL MPV (7.4-10.4) fL Immature Gran % (Auto) % Neut % (Auto) % Lymph % (Auto) % [place] % (Auto) % Eos % (Auto) % Baso % (Auto) % Neut # (Auto) (1.4-6.5) K/uL Lymph # (Auto) (1.2-3.4) K/uL [place] # (Auto) (0.11-0.59) K/uL Eos # (Auto) (0-0.5) K/uL Baso # (Auto) (0-0.2) K/uL Immature Gran # (Auto) (0.00-0.02) K/uL RBC Morphology Sodium (136-145) mmol/L Potassium (3.5-5.1) mmol/L Chloride (98-107) mmol/L Carbon Dioxide (21-32) mmol/L Anion Gap (3-11) BUN (6-23) mg/dl Creatinine (0.6-1.2) mg/dl Est Cr Clr Drug Dosing ml/min Est GFR ( Amer) ml/min Est GFR (Non-Af Amer) ml/min BUN/Creatinine Ratio (10-20) Glucose (70-99(Fasting)) mg/dl POC Glucose 122 H 137 H 192 H (70-99) mg/dl Lactate (0.4-2.0) mmol/L Calcium (8.5-10.1) mg/dl Magnesium (1.7-2.4) mg/dl SARS-CoV-2, RNA, NAAT (NEGATIVE) Blood Type Antibody Screen Antibody Identification Antibody ID Comment Crossmatch 12/01/21 12/02/21 12/02/21 Range/Units 20:57 06:58 06:58 WBC 12.28 H (4.8-10.8) K/uL RBC 3.61 L (4.2-5.4) M/uL Hgb 10.9 L (12.0-16.0) g/dL Hct 33.2 L (37-47) % MCV 92.0 (80-100) fL MCH 30.2 (25-34) pg MCHC 32.8 (32-36) g/dL RDW Std Deviation 45.8 (36.4-46.3) fL RDW Coeff of Chely 13.6 (11.5-14.5) % Plt Count 185 (130-400) K/uL MPV 10.1 (7.4-10.4) fL Immature Gran % (Auto) 0.2 % Neut % (Auto) 82.5 % Lymph % (Auto) 11.8 % [place] % (Auto) 5.4 % Eos % (Auto) 0.0 % Baso % (Auto) 0.1 % Neut # (Auto) 10.13 H (1.4-6.5) K/uL Lymph # (Auto) 1.45 (1.2-3.4) K/uL [place] # (Auto) 0.66 H (0.11-0.59) K/uL Eos # (Auto) 0.00 (0-0.5) K/uL Baso # (Auto) 0.01 (0-0.2) K/uL Immature Gran # (Auto) 0.03 H (0.00-0.02) K/uL RBC Morphology Unremarkable Sodium 138 (136-145) mmol/L Potassium 3.7 (3.5-5.1) mmol/L Chloride 109 H (98-107) mmol/L Carbon Dioxide 23 (21-32) mmol/L Anion Gap 6 (3-11) BUN 25 H (6-23) mg/dl Creatinine 1.37 H (0.6-1.2) mg/dl Est Cr Clr Drug Dosing 45.7 ml/min Est GFR ( Amer) 45.5 ml/min Est GFR (Non-Af Amer) 39.3 ml/min BUN/Creatinine Ratio 18.2 (10-20) Glucose 127 H (70-99(Fasting)) mg/dl POC Glucose 98 (70-99) mg/dl Lactate (0.4-2.0) mmol/L Calcium 8.7 (8.5-10.1) mg/dl Magnesium 1.8 (1.7-2.4) mg/dl SARS-CoV-2, RNA, NAAT (NEGATIVE) Blood Type Antibody Screen Antibody Identification Antibody ID Comment Crossmatch 12/02/21 Range/Units 06:58 WBC (4.8-10.8) K/uL RBC (4.2-5.4) M/uL Hgb (12.0-16.0) g/dL Hct (37-47) % MCV (80-100) fL MCH (25-34) pg MCHC (32-36) g/dL RDW Std Deviation (36.4-46.3) fL RDW Coeff of Chely (11.5-14.5) % Plt Count (130-400) K/uL MPV (7.4-10.4) fL Immature Gran % (Auto) % Neut % (Auto) % Lymph % (Auto) % [place] % (Auto) % Eos % (Auto) % Baso % (Auto) % Neut # (Auto) (1.4-6.5) K/uL Lymph # (Auto) (1.2-3.4) K/uL [place] # (Auto) (0.11-0.59) K/uL Eos # (Auto) (0-0.5) K/uL Baso # (Auto) (0-0.2) K/uL Immature Gran # (Auto) (0.00-0.02) K/uL RBC Morphology Sodium (136-145) mmol/L Potassium (3.5-5.1) mmol/L Chloride (98-107) mmol/L Carbon Dioxide (21-32) mmol/L Anion Gap (3-11) BUN (6-23) mg/dl Creatinine (0.6-1.2) mg/dl Est Cr Clr Drug Dosing ml/min Est GFR ( Amer) ml/min Est GFR (Non-Af Amer) ml/min BUN/Creatinine Ratio (10-20) Glucose (70-99(Fasting)) mg/dl POC Glucose (70-99) mg/dl Lactate 0.9 (0.4-2.0) mmol/L Calcium (8.5-10.1) mg/dl Magnesium (1.7-2.4) mg/dl SARS-CoV-2, RNA, NAAT (NEGATIVE) Blood Type Antibody Screen Antibody Identification Antibody ID Comment Crossmatch
--- NOTE | 2021-12-02 08:23 | Pharmacy Report ---
Pharmacy Glycemic Short Note 2 - Date of Service December 02, 2021 - Glycemic Short BSG Results (Last 24 hours): 12/01/21 12/01/21 12/01/21 13:11 15:02 16:56 Glucose POC Glucose 122 H 137 H 192 H 12/01/21 12/02/21 12/02/21 20:57 06:58 07:47 Glucose 127 H POC Glucose 98 125 H OUTPATIENT ANTIDIABETIC REGIMEN: * Ozempic 0.25 mg weekly * Metformin ER 500 mg daily ASSESSMENT: 12/02/21: * Francisca received a total of 8 units of SQ novolog yesterday with BSGs 109, 122, 192, 98 mg/dL. * Fasting BSG at goal with out basal insulin. * Post prandial BSGs are acceptable. Will loosen Novolog parameters today per no ongoing steroids. * Scr elevated compared to baseline. Continue to hold metformin. 12/01/21: * 70 y/o F admitted for Left TKA today. Patient with history of diabetes managed at home on oral Metformin and Ozempic. These will be held on admission and will utilize basal and bolus insulin for glycemic control. * Patient's BSGs so far on admission are well controlled. She received a dose of IV Dex 4mg in the OR today. Expect BSG to trend up by dinner. * Since BSGs have been within goal so far, a basal insulin dose is not ordered. * Novolog ordered with meals based on stress between 2 and 3. PLAN FOR INPATIENT GLYCEMIC CONTROL: * Hold outpatient oral diabetes medications * Basal insulin * none * Bolus insulin * NovoLog per scale ACHS or Q6hrs while NPO * Goal Range: Low 110 mg/dL - High 140 mg/dL * Correction Factor: 25 mg/dL/unit * Nutritional / Prandial insulin per carb ratio of 1 unit per 8 grams CHO consumed
[2021-12-02] MEDS: INSULIN ASPART 100 UNITS/ML 3 ML PEN SC SCH ×3 (08:45→18:01)
[2021-12-02] MEDS: PILOCARPINE HCL 5 MG TABLET PO SCH ×4 (08:47→21:12)
[2021-12-02] MEDS: CYANOCOBALAMIN (B-12) 500 MCG TABLET PO SCH (08:47)
[2021-12-02] MEDS: PANTOprazole 40 MG TAB PO SCH ×2 (08:47→21:12)
[2021-12-02] MEDS: OXYBUTYNIN CHLORIDE 5 MG TAB PO SCH ×3 (08:47→21:12)
[2021-12-02] MEDS: MULTIVITAMIN TAB PO SCH (08:47)
[2021-12-02] MEDS: ASPIRIN 81 MG ECTAB PO SCH ×2 (08:47→21:13)
[2021-12-02] MEDS: DOCUSATE SODIUM 100 MG CAP PO SCH ×2 (08:47→21:13)
[2021-12-02] MEDS ORDERED: acetaZOLAMIDE 250 MG TAB PO SCH (09:00)
[2021-12-02] MEDS ORDERED: lisinopril 2.5 MG TAB PO SCH (09:00)
[2021-12-02] MEDS ORDERED: hydroCHLOROthiazide 25 MG TAB PO SCH (09:00)
[2021-12-02] MEDS ORDERED: NON-FORMULARY MEDICATION (Multivitamin Tablet) PO SCH (09:00)
[2021-12-02] MEDS: INSULIN ASPART PER UNIT SC SCH ×3 (18:38→21:24)
[2021-12-02] MEDS: rOPINIRole HCL 0.25 MG TABLET PO SCH (21:12)
[2021-12-02] MEDS: GABAPENTIN 300 MG CAP PO SCH (21:13)
[2021-12-02] MEDS: SENNA 8.6 MG TAB PO SCH (21:13)
--- NOTE | 2021-12-02 22:16 | Hospitalist Progress Note ---
Date of Service December 02, 2021 Assessment & Plan (1) S/P total knee arthroplasty: Plan: Post op day# 1 S/P Left TKA by Dr Roberto No postop complication Continue incentive spirometry Hgb 10.9 Continue PT/OT as appropriate Continue pain control (2) Diabetes mellitus, type 2: Plan: -A1c: 6.1 on on 11/05/21 -Hold home metformin, Ozempic -Basal bolus insulin, glycemic pharmacist on board, appreciate management (3) Hypertension: Plan: BP in the low side Continue hold HCTZ and lisinopril, will reassess tomorrow (4) Sjogren's syndrome: Plan: -Continue cevimeline (5) Cutaneous lupus erythematosus: Plan: -Uses topical steroids as needed. No current rashes. Follows with dermatology (6) CKD (chronic kidney disease) stage 3, GFR 30-59 ml/min: Plan: Baseline Cr: 1.1-1.3 (7) Ataxia: Plan: Follows with neurology Continue diamox (8) Sleep apnea: Plan: -CPAP HS DVT Prophylaxis SCDs per orhto Disposition per primary service Thank you for this consultation. We will follow the patient with you during their hospital stay. You can reach a [facility] via [employer] Admission and Anticipated Discharge Date Admission Date: December 01, 2021 Subjective Pt was seen and examined for postop follow up Lying in bed with no acute distress Pt said that pain is in control She said that she walked with PT/OT today Denies any chest pain, palpitation, dizziness and fever Review of Systems Review of Systems: All systems reviewed & are unremarkable except as noted in Subjective Physical Exam Physical Exam: General- No acute distress Head- atraumatic Eyes- PERRL, EOMI, ENT- oropharynx clear Neck- supple, no JVD Lungs- clear to auscultation Heart- regular rhythm; no murmur Abdomen- normal bowel sounds, soft, nontender Extremities- no calf tenderness, +NIALL wrap and surgical dressing in place is dry and intact and +hemovac in place in LLE Neuro- alert, oriented x 3; PERRL, EOMI; no facial palsy; no dysarthria Skin- warm & dry Results & Data Results & Data ([facility]) Vital Signs (Past 12 Hours) Vital Signs Temp Pulse Resp BP Pulse Ox 12/02/21 15:50 36.5 C 56 L 16 114/73 99 12/02/21 11:50 36.5 C 56 L 16 95/60 L 97
[2021-12-03] MEDS: ACETAMINOPHEN 500 MG TAB PO SCH ×2 (05:20→14:17)
[2021-12-03] MEDS: oxyCODONE HCL IR 5 MG TAB (IMMEDIATE RELEASE) PO PRN ×2 (08:01→12:56)
--- NOTE | 2021-12-03 08:42 | Orthopedic Progress Note ---
Date of Service December 03, 2021 Assessment & Plan (1) S/P total knee arthroplasty: Plan: Postop day #2 left total knee arthroplasty -PT/OT -Pain management as written -DVT prophylaxis: Aspirin 81 mg twice daily, SCDs, teds -AM labs: Labs pending -Discharge planning: Plan on discharge home with outpatient therapy. We will monitor her blood pressure, monitor kidney function. IV fluids per medicine. Likely discharge home today as long as vitals and labs stable/improving. Admission and Anticipated Discharge Date Admission Date: December 01, 2021 Subjective POD 1 Pt sitting up in bed eating breakfast. No complaints this AM. Comfortable. Pain controlled. Denies SOB, CP,LH. Physical Exam Physical Exam: Dressings C/D/I. Calves soft, NT. NV intact. Toes mobile. Results & Data ([facility]) Vital Signs (Past 12 Hours) Vital Signs Temp Pulse Resp BP Pulse Ox 12/03/21 07:30 36.6 C 65 16 110/68 96 12/02/21 22:36 36.3 C L 66 16 103/65 97
[2021-12-03] MEDS: CYANOCOBALAMIN (B-12) 500 MCG TABLET PO SCH (08:49)
[2021-12-03] MEDS: PILOCARPINE HCL 5 MG TABLET PO SCH ×2 (08:49→12:47)
[2021-12-03] MEDS: ASPIRIN 81 MG ECTAB PO SCH (08:49)
[2021-12-03] MEDS: DOCUSATE SODIUM 100 MG CAP PO SCH (08:49)
[2021-12-03] MEDS: OXYBUTYNIN CHLORIDE 5 MG TAB PO SCH ×2 (08:49→14:17)
[2021-12-03] MEDS: PANTOprazole 40 MG TAB PO SCH (08:49)
[2021-12-03] MEDS: MULTIVITAMIN TAB PO SCH (08:50)
[2021-12-03] MEDS: INSULIN ASPART PER UNIT SC SCH ×2 (08:52→12:50)
[2021-12-03 09:38] LABS: Hemoglobin 10.9 g/dL (12.0-16.0); Mean Corpuscular Hemoglobin 30.3 pg (25-34); Mean Corpuscular Volume 91.7 fL (80-100); Mean Platelet Volume 10.4 fL (7.4-10.4); Platelet Count 192 K/uL (130-400); RDW Coefficient of Variation 13.9 % (11.5-14.5); RDW Standard Deviation 46.9 fL (36.4-46.3); White Blood Count 9.26 K/uL (4.8-10.8)
[2021-12-03 09:56] LABS: BUN Creatinine Ratio 21.5 (10-20); Calcium 8.8 mg/dl (8.5-10.1); Creatinine Clr Calc Pharmacy 48.7 ml/min; Est GFR (African American) 48.5 ml/min; Est GFR (Non-African American) 41.8 ml/min; Potassium 3.3 mmol/L (3.5-5.1)
[2021-12-03] MEDS ORDERED: POTASSIUM CHLORIDE CRTAB 20 MEQ TABCR PO STA (12:04)
--- NOTE | 2021-12-03 12:07 | Hospitalist Progress Note ---
Date of Service December 03, 2021 Assessment & Plan (1) S/P total knee arthroplasty: Plan: Post op day# 2 S/P Left TKA by Dr Roberto No postop complication Continue incentive spirometry Hgb stable at 10.9 Continue PT/OT as appropriate Continue pain control Fall precaution Follow up with ortho outpatient (2) Diabetes mellitus, type 2: Plan: -A1c: 6.1 on on 11/05/21 -Hold home metformin, Ozempic during hospital course, will resume on discharge -Basal bolus insulin, glycemic pharmacist on board, appreciate management (3) Hypertension: Plan: BP in the low side Continue hold HCTZ and lisinopril for now Will resume Lisinopril on discharge Continue monitor BP and if starting to elevate will resume HCTZ (4) Sjogren's syndrome: Plan: -Continue cevimeline (5) Cutaneous lupus erythematosus: Plan: -Uses topical steroids as needed. No current rashes. Follows with dermatology (6) CKD (chronic kidney disease) stage 3, GFR 30-59 ml/min: Plan: Baseline Cr: 1.1-1.3, creatinine 1.3 today Check BMP in 1 week to monitor electrolytes Hypokalemia K 3.3 today K replaced Check BMP in 1 week (7) Ataxia: Plan: Follows with neurology Continue diamox (8) Sleep apnea: Plan: -CPAP HS DVT Prophylaxis SCDs per orhto Disposition per primary service Thank you for this consultation. We will follow the patient with you during their hospital stay. You can reach a [facility] via [employer] Admission and Anticipated Discharge Date Admission Date: December 01, 2021 Subjective Pt was seen and examined for postop follow up Lying in bed with no acute distress Pt said that pain is in control Plan to discharge home today Denies any chest pain, palpitation, dizziness and fever Review of Systems Review of Systems: All systems reviewed & are unremarkable except as noted in Subjective Physical Exam Physical Exam: General- No acute distress Head- atraumatic Eyes- PERRL, EOMI, ENT- oropharynx clear Neck- supple, no JVD Lungs- clear to auscultation Heart- regular rhythm; no murmur Abdomen- normal bowel sounds, soft, nontender Extremities- no calf tenderness Neuro- alert, oriented x 3; PERRL, EOMI; no facial palsy; no dysarthria Skin- warm & dry Results & Data Results & Data ([facility] [place]) Vital Signs (Past 12 Hours) Vital Signs Temp Pulse Resp BP Pulse Ox 12/03/21 07:30 36.6 C 65 16 110/68 96
--- NOTE | 2021-12-04 08:14 | Discharge Summary ---
Date of Service December 04, 2021 Admission HPI Per Admitting Provider 70yo female with PMHx significant for SANDRINE, DM2, HTN, CKD who presents with ongoing left knee pain. She has failed conservative measures including viscoelastic and cortisone injecitons, as well as anti-inflammatories. Pain is interfering with her daily activities. She would like to proceed with surgical intervention. Patient denies headaches, sweats, fevers, chills, double vision, blurred vision, cough, sore throat, dysphagia, chest pain, sob, wheezing, n/v/d/c, numbness, tingling, fatigue, urinary symptoms, mood disorders. ROS positive for left knee pain and stiffness. Admission Exam Per Admitting Provider Constitutional: well developed and well nourished; no acute distress Eyes: PERRL, conjunctivae normal, anicteric sclerae ENMT: external ear and nose normal, oropharynx normal Neck: trachea midline, no thyromegaly Respiratory: normal respiratory effort, lungs clear to auscultation Cardiovascular: RRR, no murmur, no edema Musculoskeletal: Left knee: Varus alignment. Mild effusion. Tenderness medial joint line. ROM 15-100 degrees. Stable to valgus and varus stress. Skin: no rashes, warm and dry Neurologic: patellar DTR's 2+ bilat, sensation intact Psychiatric: A+Ox3, euthymic affect Principal Diagnosis Left knee osteoarthritis Discharge Exam Left knee: Dressing is clean, dry, intact. No calf tenderness. Toes are mobile with good dorsiflexion. Able to do straight leg raise. Distally neurovascular status and sensation intact. James wound VAC functioning, Hemovac on suction. Constitutional WD/WN, vitals as above Discharge Data Allergies Allergy/AdvReac Type Severity Reaction Status Date / Time No Known Allergies Allergy Verified 12/01/21 07:37 Consultations 12/01/21 05:00 Consult Hospitalist Routine Procedures Performed Operation Date: 12/01/21 09:35 Actual Procedures p Left Total Knee Arthroplasty(Left) - Zaid Roberto MD Ordered Studies 12/01/21 05:00 US - OR guided needle placemen Routine Hospital Course (1) S/P total knee arthroplasty: Patient presented for same day admission following left total knee arthroplasty on December 01. She tolerated procedure well. The Patient had an uneventful hospital course. She did have some postoperative hypotension and was given IV fluids. This had improved by postop day #2. Mild increase in her creatinine as well from baseline however was improving on postop day #2. Post- operatively, her activity was progressed and well tolerated. They participated in PT with ambulation distance of 150 feet. ROM of operative knee reached 90 degrees. Labs remained stable. Dr. New of medical service was consulted for medical management during admission. Pain controlled on oral medications. Please refer to daily progress notes and PT notes for complete details. After exam on December 03, 2021, patient was felt to be stable for discharge home with plans on attending outpatient therapy. Patient will f/u in the office in about 2 weeks for further evaluation including x-rays and incision check, sooner if having any issues or concerns. Postop day #2 left total knee arthroplasty -PT/OT -Pain management as written -DVT prophylaxis: Aspirin 81 mg twice daily, SCDs, teds -AM labs: Labs pending -Discharge planning: Plan on discharge home with outpatient therapy. We will monitor her blood pressure, monitor kidney function. IV fluids per medicine. Likely discharge home today as long as vitals and labs stable/improving Lab Results 06// 06// 06// Range/Units 07:50 08:04 08:56 WBC (4.8-10.8) K/uL RBC (4.2-5.4) M/uL Hgb (12.0-16.0) g/dL Hct (37-47) % MCV (80-100) fL MCH (25-34) pg MCHC (32-36) g/dL RDW Std Deviation (36.4-46.3) fL RDW Coeff of Chely (11.5-14.5) % Plt Count (130-400) K/uL MPV (7.4-10.4) fL Immature Gran % (Auto) % Neut % (Auto) % Lymph % (Auto) % [place] % (Auto) % Eos % (Auto) % Baso % (Auto) % Neut # (Auto) (1.4-6.5) K/uL Lymph # (Auto) (1.2-3.4) K/uL [place] # (Auto) (0.11-0.59) K/uL Eos # (Auto) (0-0.5) K/uL Baso # (Auto) (0-0.2) K/uL Immature Gran # (Auto) (0.00-0.02) K/uL RBC Morphology Sodium (136-145) mmol/L Potassium (3.5-5.1) mmol/L Chloride (98-107) mmol/L Carbon Dioxide (21-32) mmol/L Anion Gap (3-11) BUN (6-23) mg/dl Creatinine (0.6-1.2) mg/dl Est Cr Clr Drug Dosing ml/min Est GFR ( Amer) ml/min Est GFR (Non-Af Amer) ml/min BUN/Creatinine Ratio (10-20) Glucose (70-99(Fasting)) mg/dl POC Glucose 109 H (70-99) mg/dl Lactate (0.4-2.0) mmol/L Calcium (8.5-10.1) mg/dl Magnesium (1.7-2.4) mg/dl SARS-CoV-2, RNA, NAAT NEGATIVE (NEGATIVE) Blood Type A Positive Antibody Screen POSITIVE A Antibody Identification Anti-c Antibody ID Comment Crossmatch See Detail 12/01/21 12/01/21 12/01/21 Range/Units 13:11 15:02 16:56 WBC (4.8-10.8) K/uL RBC (4.2-5.4) M/uL Hgb (12.0-16.0) g/dL Hct (37-47) % MCV (80-100) fL MCH (25-34) pg MCHC (32-36) g/dL RDW Std Deviation (36.4-46.3) fL RDW Coeff of [place]ly (11.5-14.5) % Plt Count (130-400) K/uL MPV (7.4-10.4) fL Immature Gran % (Auto) % Neut % (Auto) % Lymph % (Auto) % [place] % (Auto) % Eos % (Auto) % Baso % (Auto) % Neut # (Auto) (1.4-6.5) K/uL Lymph # (Auto) (1.2-3.4) K/uL [place] # (Auto) (0.11-0.59) K/uL Eos # (Auto) (0-0.5) K/uL Baso # (Auto) (0-0.2) K/uL Immature Gran # (Auto) (0.00-0.02) K/uL RBC Morphology Sodium (136-145) mmol/L Potassium (3.5-5.1) mmol/L Chloride (98-107) mmol/L Carbon Dioxide (21-32) mmol/L Anion Gap (3-11) BUN (6-23) mg/dl Creatinine (0.6-1.2) mg/dl Est Cr Clr Drug Dosing ml/min Est GFR ( Amer) ml/min Est GFR (Non-Af Amer) ml/min BUN/Creatinine Ratio (10-20) Glucose (70-99(Fasting)) mg/dl POC Glucose 122 H 137 H 192 H (70-99) mg/dl Lactate (0.4-2.0) mmol/L Calcium (8.5-10.1) mg/dl Magnesium (1.7-2.4) mg/dl SARS-CoV-2, RNA, NAAT (NEGATIVE) Blood Type Antibody Screen Antibody Identification Antibody ID Comment Crossmatch 12/01/21 12/02/21 12/02/21 Range/Units 20:57 06:58 06:58 WBC 12.28 H (4.8-10.8) K/uL RBC 3.61 L (4.2-5.4) M/uL Hgb 10.9 L (12.0-16.0) g/dL Hct 33.2 L (37-47) % MCV 92.0 (80-100) fL MCH 30.2 (25-34) pg MCHC 32.8 (32-36) g/dL RDW Std Deviation 45.8 (36.4-46.3) fL RDW Coeff of Chely 13.6 (11.5-14.5) % Plt Count 185 (130-400) K/uL MPV 10.1 (7.4-10.4) fL Immature Gran % (Auto) 0.2 % Neut % (Auto) 82.5 % Lymph % (Auto) 11.8 % [place] % (Auto) 5.4 % Eos % (Auto) 0.0 % Baso % (Auto) 0.1 % Neut # (Auto) 10.13 H (1.4-6.5) K/uL Lymph # (Auto) 1.45 (1.2-3.4) K/uL [place] # (Auto) 0.66 H (0.11-0.59) K/uL Eos # (Auto) 0.00 (0-0.5) K/uL Baso # (Auto) 0.01 (0-0.2) K/uL Immature Gran # (Auto) 0.03 H (0.00-0.02) K/uL RBC Morphology Unremarkable Sodium 138 (136-145) mmol/L Potassium 3.7 (3.5-5.1) mmol/L Chloride 109 H (98-107) mmol/L Carbon Dioxide 23 (21-32) mmol/L Anion Gap 6 (3-11) BUN 25 H (6-23) mg/dl Creatinine 1.37 H (0.6-1.2) mg/dl Est Cr Clr Drug Dosing 45.7 ml/min Est GFR ( Amer) 45.5 ml/min Est GFR (Non-Af Amer) 39.3 ml/min BUN/Creatinine Ratio 18.2 (10-20) Glucose 127 H (70-99(Fasting)) mg/dl POC Glucose 98 (70-99) mg/dl Lactate (0.4-2.0) mmol/L Calcium 8.7 (8.5-10.1) mg/dl Magnesium 1.8 (1.7-2.4) mg/dl SARS-CoV-2, RNA, NAAT (NEGATIVE) Blood Type Antibody Screen Antibody Identification Antibody ID Comment Crossmatch 12/02/21 12/02/21 12/02/21 Range/Units 06:58 07:47 12:11 WBC (4.8-10.8) K/uL RBC (4.2-5.4) M/uL Hgb (12.0-16.0) g/dL Hct (37-47) % MCV (80-100) fL MCH (25-34) pg MCHC (32-36) g/dL RDW Std Deviation (36.4-46.3) fL RDW Coeff of [place] (11.5-14.5) % Plt Count (130-400) K/uL MPV (7.4-10.4) fL Immature Gran % (Auto) % Neut % (Auto) % Lymph % (Auto) % [place] % (Auto) % Eos % (Auto) % Baso % (Auto) % Neut # (Auto) (1.4-6.5) K/uL Lymph # (Auto) (1.2-3.4) K/uL [place] # (Auto) (0.11-0.59) K/uL Eos # (Auto) (0-0.5) K/uL Baso # (Auto) (0-0.2) K/uL Immature Gran # (Auto) (0.00-0.02) K/uL RBC Morphology Sodium (136-145) mmol/L Potassium (3.5-5.1) mmol/L Chloride (98-107) mmol/L Carbon Dioxide (21-32) mmol/L Anion Gap (3-11) BUN (6-23) mg/dl Creatinine (0.6-1.2) mg/dl Est Cr Clr Drug Dosing ml/min Est GFR ( Amer) ml/min Est GFR (Non-Af Amer) ml/min BUN/Creatinine Ratio (10-20) Glucose (70-99(Fasting)) mg/dl POC Glucose 125 H 85 (70-99) mg/dl Lactate 0.9 (0.4-2.0) mmol/L Calcium (8.5-10.1) mg/dl Magnesium (1.7-2.4) mg/dl SARS-CoV-2, RNA, NAAT (NEGATIVE) Blood Type Antibody Screen Antibody Identification Antibody ID Comment Crossmatch 12/02/21 12/02/21 12/03/21 Range/Units 17:16 20:43 08:21 WBC (4.8-10.8) K/uL RBC (4.2-5.4) M/uL Hgb (12.0-16.0) g/dL Hct (37-47) % MCV (80-100) fL MCH (25-34) pg MCHC (32-36) g/dL RDW Std Deviation (36.4-46.3) fL RDW Coeff of [place]ly (11.5-14.5) % Plt Count (130-400) K/uL MPV (7.4-10.4) fL Immature Gran % (Auto) % Neut % (Auto) % Lymph % (Auto) % [place] % (Auto) % Eos % (Auto) % Baso % (Auto) % Neut # (Auto) (1.4-6.5) K/uL Lymph # (Auto) (1.2-3.4) K/uL [place] # (Auto) (0.11-0.59) K/uL Eos # (Auto) (0-0.5) K/uL Baso # (Auto) (0-0.2) K/uL Immature Gran # (Auto) (0.00-0.02) K/uL RBC Morphology Sodium (136-145) mmol/L Potassium (3.5-5.1) mmol/L Chloride (98-107) mmol/L Carbon Dioxide (21-32) mmol/L Anion Gap (3-11) BUN (6-23) mg/dl Creatinine (0.6-1.2) mg/dl Est Cr Clr Drug Dosing ml/min Est GFR ( Amer) ml/min Est GFR (Non-Af Amer) ml/min BUN/Creatinine Ratio (10-20) Glucose (70-99(Fasting)) mg/dl POC Glucose 107 H 107 H 105 H (70-99) mg/dl Lactate (0.4-2.0) mmol/L Calcium (8.5-10.1) mg/dl Magnesium (1.7-2.4) mg/dl SARS-CoV-2, RNA, NAAT (NEGATIVE) Blood Type Antibody Screen Antibody Identification Antibody ID Comment Crossmatch 12/03/21 12/03/21 12/03/21 Range/Units 09:17 09:17 12:15 WBC 9.26 (4.8-10.8) K/uL RBC 3.60 L (4.2-5.4) M/uL Hgb 10.9 L (12.0-16.0) g/dL Hct 33.0 L (37-47) % MCV 91.7 (80-100) fL MCH 30.3 (25-34) pg MCHC 33.0 (32-36) g/dL RDW Std Deviation 46.9 H (36.4-46.3) fL RDW Coeff of Chely 13.9 (11.5-14.5) % Plt Count 192 (130-400) K/uL MPV 10.4 (7.4-10.4) fL Immature Gran % (Auto) % Neut % (Auto) % Lymph % (Auto) % [place] % (Auto) % Eos % (Auto) % Baso % (Auto) % Neut # (Auto) (1.4-6.5) K/uL Lymph # (Auto) (1.2-3.4) K/uL [place] # (Auto) (0.11-0.59) K/uL Eos # (Auto) (0-0.5) K/uL Baso # (Auto) (0-0.2) K/uL Immature Gran # (Auto) (0.00-0.02) K/uL RBC Morphology Sodium 136 (136-145) mmol/L Potassium 3.3 L (3.5-5.1) mmol/L Chloride 107 (98-107) mmol/L Carbon Dioxide 24 (21-32) mmol/L Anion Gap 5 (3-11) BUN 28 H (6-23) mg/dl Creatinine 1.30 H (0.6-1.2) mg/dl Est Cr Clr Drug Dosing 48.7 ml/min Est GFR ( Amer) 48.5 ml/min Est GFR (Non-Af Amer) 41.8 ml/min BUN/Creatinine Ratio 21.5 H (10-20) Glucose 107 H (70-99(Fasting)) mg/dl POC Glucose 86 (70-99) mg/dl Lactate (0.4-2.0) mmol/L Calcium 8.8 (8.5-10.1) mg/dl Magnesium (1.7-2.4) mg/dl SARS-CoV-2, RNA, NAAT (NEGATIVE) Blood Type Antibody Screen Antibody Identification Antibody ID Comment Crossmatch Total Time Total Time Spent Total Time Spent (In Minutes): 20 Discharge Plan Discharge Items Patient Disposition: Home - Self-Care Reason For Visit: Left Knee Osteoarthritis Discharge Diagnosis: Left knee osteoarthritis Activity: Per Instructions section Weightbearing: Left weightbearing Weightbearing Comment: as tolerated with walker Non-emergency contact: Surgeon Call non-emergency contact if: you have any medication questions, your pain is not controlled, your pain is concerning for you, you have a fever, your temperature is above 101, your wound has increased redness and your wound has increased drainage Follow-up/Referrals: Zaid Roberto MD [Surgeon] - 12/14/21 1:00 pm (Follow up with Dr Roberto or his PA in 14 days from the day of surgery. Please call for an appointment if one has not already been made. [phone]) Vj Stafford MD [Primary Care Provider] - Diet: Regular Addtl Attending Provider Instructions: ACTIVITY RECOMMENDATIONS: SELF CARE INSTRUCTIONS AFTER TOTAL KNEE REPLACEMENT A. You may need to continue a physical therapy program after discharge from the hospital. There are several options available to you. Your doctor will assist you in selecting the best one for you. 1. An out-patient facility 2 to 3 times a week for therapy or home therapy. 2. Continue working on all exercises taught to you in the hospital. Your goals should be to increase bending of your knee to 90 degrees and beyond and to fully straighten your knee. B. You may progress at your own pace from walking with a walker or crutches to a cane; then to no assistive devices. C. Make walking a part of your daily routine. Be up as much as comfortable with rest periods throughout the day. Rest with leg elevation is very important. Use the ice wrap frequently for the first 3-4 weeks. D. There are no restrictions on activities. 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 E. Wear the long elastic stockings (BARBIE hose) 20 hours a day for 2 weeks after surgery. They can be removed several times a day for laundering and for a bath. F. You may shower, no tub baths until cleared by your doctor. SPECIAL CARE INSTRUCTIONS: VERY IMPORTANT TO READ AND REVIEW A. There are a few signs you need to watch for after you are home. Call [facility] [place] if you notice any of the followin. Increased severe knee pain. Some pain is expected especially when you exercise. 2. Increased swelling in your leg or knee; pain or swelling of the calf muscle in either lower leg. 3. Any fluid drainage from the incision. 4. Shortness of breath or chest pain. B. Please call [facility] at if you have any concerns or questions about your operation or recovery. The doctor or his nurse will return your call promptly. C. You must take antibiotics before dental work, bladder, bowel or other surgery. Your doctor will provide you with a permanent care to carry describing this precaution. IMPORTANT: * REMEMBER TO TAKE ASPIRIN, 81 MG, TWICE DAILY FOR 4 WEEKS UNLESS OTHERWISE DIRECTED. THIS IS YOUR BLOOD THINNER. * CALL IF INCREASED PAIN, REDNESS, DRAINAGE OR FEVER GREATER THAT 101. * WEAR BARBIE HOSE 20 HOURS PER DAY FOR 2 WEEKS. This is a large suction dressing covering your incision. This will help pull any excess drainage from the wound and allow your incision to heal properly. You may shower with this if you can keep the unit outside of the shower. If any bleeding or leakage is noted please call your doctor's office. This will remain on your incision for 7 days and then should be removed. This can be done yourself or by the home nursing staff if applicable. The entire unit is disposable once removed. Once removed, keep incision clean and dry. If redness or drainage is noted, please call your surgeon. IF INCISION IS LEAKING THROUGH DRESSING, CALL THE OFFICE . FOLLOW UP VISIT: If appointment is not already scheduled: Please call [facility] [place] to make a follow-up appointment for 2 weeks after your surgery at . Addtl Harvester Operator Provider Instructions: Follow up with your primary care provider within 1 week ( please call for the appointment) Ok to resume Lisinopril on discharge. Once Blood pressure starts to rise please resume hydrochlorothiazide Continue monitor your blood pressure Check BMP in 1 week to monitor your electrolytes and renal function Fall precaution Pending Studies at Discharge: No Stand-Alone Forms: My [employer], Smoking Cessation Medications and DC Order Prescriptions: New aspirin 81 mg Tablet,Delayed Release (Dr/Ec) 81 mg PO BID 30 Days Qty: 60 RF: 0 acetaminophen [Tylenol Extra Strength] 500 mg Tablet 1,000 mg PO Q8 14 Days Qty: 84 RF: 0 polyethylene glycol 3350 [Miralax] 17 gram powder in packet 17 g PO DAILY PRN (Reason: constipation) Qty: 5 RF: 0 cefadroxil 500 mg capsule 500 mg PO BID Qty: 14 RF: 0 oxycodone 5 mg Tablet 5 mg PO Q4H MDD 6 PRN (Reason: pain) Qty: 30 RF: 0 Continued multivitamin Tablet 1 tab PO QAM RF: 0 metformin 500 mg Tablet 500 mg PO QPM RF: 0 pilocarpine HCl 5 mg Tablet 5 mg PO QID RF: 0 acetazolamide 250 mg Tablet 250 mg PO UD RF: 0 pantoprazole 20 mg Tablet,Delayed Release (Dr/Ec) 20 mg PO BID RF: 0 ropinirole 0.25 mg Tablet 0.25 mg PO HS RF: 0 ferrous sulfate [iron] 325 mg (65 mg iron) Tablet 325 mg PO Q2D RF: 0 cevimeline 30 mg Capsule 1 cap PO TID RF: 0 hydrochlorothiazide 25 mg Tablet 25 mg PO QAM RF: 0 gabapentin 100 mg Capsule 300 mg PO HS RF: 0 oxybutynin chloride 5 mg Tablet 5 mg PO TID RF: 0 lisinopril 2.5 mg Tablet 2.5 mg PO QAM RF: 0 Fiber Gummies 2 gram Tablet,Chewable 2 g PO HS RF: 0 cyanocobalamin (vitamin B-12) 1,000 mcg Capsule 1,000 mcg PO QAM RF: 0 Ozempic 0.25 mg or 0.5 mg(2 mg/1.5 mL) Pen Injector 0.25 mg SUBCUT WK RF: 0 Discontinued aspirin 81 mg Capsule 162 mg PO QAM RF: 0 Discharge Orders: Discharge Order (Routine); Ordered 12/03/21 Ordered By: Michael Patel Admission Data Admit Date/Time: 12/01/21 13:17 Attending Provider: Zaid Roberto Admit Provider: Zaid Roberto Primary Care Provider: Vj Stafford Other Providers: Raghav Hale ; Franklin Ramirez Other Interventions: Discharge Summary Assessment (RN) Last Done: 12/03/21 13:09
== END 2021-12-03 15:37 | disposition home or self-care (01) ==
LOC: PACUINP 07:16 → ASU 07:16 → 3N 17:38